=== PATIENT | female | born 1930 | race Caucasian/White ===

== ENCOUNTER 2018-04-01 13:38 | Emergency (ER) | payer MEDICARE ==
[~2018-04-01] VITALS: Ht 152.4 cm; Wt 54.4 kg
[2018-04-01] MEDS ORDERED: ALLOPURINOL 30300 M1 PO (13:57)
[2018-04-01] MEDS ORDERED: ATENOLOL 50MG T50 M1 PO (13:57)
[2018-04-01 15:11] VITALS: BP 104/71
== END 2018-04-01 15:12 | disposition home or self-care (01) ==
LOC: M.ERS 13:38
DX: S81.811A Laceration without foreign body, right lower leg, initial encounter (principal); Z90.49 Acquired absence of other specified parts of digestive tract; Z98.890 Other specified postprocedural states; Z85.89 Personal history of malignant neoplasm of other organs and systems; Z88.8 Allergy status to other drugs, medicaments and biological substances; Z88.6 Allergy status to analgesic agent; Z91.041 Radiographic dye allergy status; Z88.5 Allergy status to narcotic agent; W01.190A Fall on same level from slipping, tripping and stumbling with subsequent striking against furniture, initial encounter; Y93.89 Activity, other specified; Y92.89 Other specified places as the place of occurrence of the external cause; Y99.8 Other external cause status